=== PATIENT | female | born 1940 | race Caucasian/White ===

== ENCOUNTER → 2020-08-14 | Outpatient (CLI) | payer OTHER ==
[~2020-08-14] VITALS: Ht 165.1 cm; Wt 70.8 kg
[~2020-08-14] MED LIST: ANTIVERT25 MG PO; FISH OIL 1,0001 EAC9 PO; LIVALO4 MG PO; PREMARIN0.3 MG PO; VITAMIN D-40010 MCG PO; ZOFRAN ODT4 MG PO
[2020-08-14 10:46] VITALS: BP 152/93
--- NOTE | 2020-08-14 10:47 | NUR ---
Pain Clinic Assessment: 1. History of Osteoarthritis: SPINE THUMBS FINGERS NECK History of Rheumatoid Arthritis: Not Applicable 2. Height: 5 ft. 5 in. 165.1 cm. Weight: 156.0 lb. oz. 70.761 kg. Patient's BMI: 26.0 3. Vital Signs: BP: 152/93 Pulse: 66 Resp: 16 Temp: 02 Sat: 92 ECG Mon: 4. Pain Intensity: 5-8 5. Fall Risk: Dizziness: N Needs help standing or walking: N Fallen in the last 3 months: N Fall risk comments: 6. Patient on Blood Thinner: None 7. History of Hypertension: N 8. Opioid Therapy greater than 6 weeks: N Opiate Contract Signed: 9. Risk Assessment Tool Provided: 0-low 10. Functional Assessment Tool: 11. Recreational Drug Use: Never Drug Type: Tobacco Use: Former Smoker Tobacco Type: Amount or Packs/day: How Many Years: Alcohol Use: Yes Frequency: Monthly Quant: 1-2
== END ==
LOC: PAIN 06:53
PROVIDERS: ATTEND Anesthesiology Pain Medicine
DX: M54.17 Radiculopathy, lumbosacral region (principal)

== ENCOUNTER → 2020-09-02 | Outpatient (CLI) | payer OTHER ==
[~2020-09-02] VITALS: Ht 165.1 cm; Wt 72.8 kg
[2020-09-02 10:38] VITALS: BP 154/79
--- NOTE | 2020-09-02 10:49 | NUR ---
Pain Clinic Assessment: 1. History of Osteoarthritis: SPINE THUMBS FINGERS NECK History of Rheumatoid Arthritis: Not Applicable 2. Height: 5 ft. 5 in. 165.1 cm. Weight: 160.4 lb. oz. 72.757 kg. Patient's BMI: 26.7 3. Vital Signs: BP: 154/79 Pulse: 78 Resp: 16 Temp: 02 Sat: 94 ECG Mon: 4. Pain Intensity: 7 5. Fall Risk: Dizziness: N Needs help standing or walking: N Fallen in the last 3 months: N Fall risk comments: 6. Patient on Blood Thinner: None 7. History of Hypertension: N 8. Opioid Therapy greater than 6 weeks: N Opiate Contract Signed: 9. Risk Assessment Tool Provided: 0-low 10. Functional Assessment Tool: 11. Recreational Drug Use: Never Drug Type: Tobacco Use: Former Smoker Tobacco Type: Amount or Packs/day: How Many Years: Alcohol Use: Yes Frequency: Quant:
== END | disposition home or self-care (01) ==
LOC: PAIN 06:47
PROVIDERS: ATTEND Anesthesiology Pain Medicine
DX: M54.16 Radiculopathy, lumbar region (principal); G89.29 Other chronic pain; M19.90 Unspecified osteoarthritis, unspecified site; Z98.890 Other specified postprocedural states; Z87.891 Personal history of nicotine dependence; Z90.49 Acquired absence of other specified parts of digestive tract; Z90.710 Acquired absence of both cervix and uterus

== ENCOUNTER → 2020-10-30 | Outpatient (CLI) | payer OTHER ==
[~2020-10-30] VITALS: Ht 165.1 cm; Wt 72.0 kg
[2020-10-30 08:59] VITALS: BP 155/81
== END | disposition home or self-care (01) ==
LOC: PAIN 06:43
PROVIDERS: ATTEND Anesthesiology Pain Medicine
DX: M54.16 Radiculopathy, lumbar region (principal); G89.29 Other chronic pain; Z98.890 Other specified postprocedural states; Z79.899 Other long term (current) drug therapy; Z90.710 Acquired absence of both cervix and uterus; Z87.891 Personal history of nicotine dependence

== ENCOUNTER → 2021-04-14 | Outpatient (CLI) | payer OTHER ==
[~2021-04-14] VITALS: Ht 165.1 cm; Wt 69.9 kg
[~2021-04-14] MED LIST changes: +NEURONTIN 300M300 M2 PO
[2021-04-14 10:40] VITALS: BP 140/99
--- NOTE | 2021-04-14 11:00 | NUR ---
Pain Clinic Assessment: 1. History of Osteoarthritis: SPINE THUMBS FINGERS NECK History of Rheumatoid Arthritis: Not Applicable 2. Height: 5 ft. 5 in. 165.1 cm. Weight: 154.2 lb. oz. 69.945 kg. Patient's BMI: 25.7 3. Vital Signs: BP: 140/99 Pulse: 71 Resp: 16 Temp: 02 Sat: 96 ECG Mon: 4. Pain Intensity: 7-8 5. Fall Risk: Dizziness: Y Needs help standing or walking: N Fallen in the last 3 months: N Fall risk comments: 6. Patient on Blood Thinner: None 7. History of Hypertension: N 8. Opioid Therapy greater than 6 weeks: N Opiate Contract Signed: 9. Risk Assessment Tool Provided: 0-low 10. Functional Assessment Tool: 11. Recreational Drug Use: Never Drug Type: Tobacco Use: Former Smoker Tobacco Type: Amount or Packs/day: How Many Years: Alcohol Use: Yes Frequency: Quant:
== END | disposition home or self-care (01) ==
LOC: PAIN 09:37
PROVIDERS: ATTEND Anesthesiology Pain Medicine
DX: M54.16 Radiculopathy, lumbar region (principal); G89.29 Other chronic pain; M19.90 Unspecified osteoarthritis, unspecified site; Z98.890 Other specified postprocedural states; Z79.899 Other long term (current) drug therapy

== ENCOUNTER → 2021-06-18 | Outpatient (CLI) | payer OTHER ==
[~2021-06-18] VITALS: Ht 165.1 cm; Wt 70.3 kg
[~2021-06-18] MED LIST changes: +MELOXICAM15 MG PO; +TRIAMTERENE-HC1 EAC2 PO
[2021-06-18 08:50] VITALS: BP 135/86
--- NOTE | 2021-06-18 08:55 | NUR ---
Pain Clinic Assessment: 1. History of Osteoarthritis: SPINE THUMBS FINGERS NECK History of Rheumatoid Arthritis: Not Applicable 2. Height: 5 ft. 5 in. 165.1 cm. Weight: 155.0 lb. oz. 70.308 kg. Patient's BMI: 25.8 3. Vital Signs: BP: 135/86 Pulse: 86 Resp: 18 Temp: 02 Sat: 98 ECG Mon: 4. Pain Intensity: 6 5. Fall Risk: Dizziness: N Needs help standing or walking: N Fallen in the last 3 months: N Fall risk comments: 6. Patient on Blood Thinner: None 7. History of Hypertension: N 8. Opioid Therapy greater than 6 weeks: N Opiate Contract Signed: 9. Risk Assessment Tool Provided: 0-low 10. Functional Assessment Tool: 11. Recreational Drug Use: Never Drug Type: Tobacco Use: Former Smoker Tobacco Type: Amount or Packs/day: How Many Years: Alcohol Use: Yes Frequency: Special Occasions Quant: 1
== END ==
LOC: PAIN 06:42
PROVIDERS: ATTEND Anesthesiology Pain Medicine
DX: M54.16 Radiculopathy, lumbar region (principal); M19.90 Unspecified osteoarthritis, unspecified site; Z87.891 Personal history of nicotine dependence; Z72.89 Other problems related to lifestyle